=== PATIENT | male | born 1975 | race Caucasian/White ===

== ENCOUNTER 2019-09-24 11:00 | Outpatient (RCR) | payer BC, SELFPAY ==
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
--- NOTE | 2019-08-05 09:01 | PCPTNOTE ---
Late Note for 07/28/19: Patient called & cancelled scheduled appointment this date due to being out of town.
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
--- NOTE | 2019-08-27 11:46 | OTOPEVAL ---
OCCUPATIONAL THERAPY RE-EVALUATION REPORT 08/27/2019 Thank you for referring Adiel Royal to [facility]. Continued skilled OT indicated 2x/week for 5 weeks. Please review, sign, date and return this plan of care ZAIDA. I agree with and certify that the following plan of care is medically necessary. Referring Physician Date Referring Provider: RUTHIE ROTHMAN NP *OT Outpatient Re-Evaluation Evaluation Information Problem Diagnosis (R) distal radius fracture s/p bridge plate removal Additional Evaluation Detail fracture 03/11/19 initial sx 03/24/19 plate removal 07/13/19 Subjective Information Patient reports improved Query Text:As Reported By Patient/ functional use of the RUE Family since beginning OT. He states he is using his hand more, noting being able to use the right hand to feed himself and open a can. He is still limited strength-hammonds, as he is unable to twist open a bottle, but he does note improvement with being able to carry a full aluminum cup. Pain Assessment Timing of Pain Assessment Timing of Pain Assessment Re-assessment Pain Scale Pain Scale Used Numeric (1 - 10) Self Report Pain Assessment Right Wrist(s) Reported Pain Level 0 Lowest Pain Intensity 0 Greatest Pain Intensity 5 Pain Aggravating Factors Exercise/Activity Pain Score Pain Score 0: Self Report Upper Extremity Range of Motion Scapular/ Shoulder Range of Motion Right Reason Not Measured WNL/Right Elbow/Forearm Range of Motion Right Elbow Flexion - Active 120 Elbow Flexion - Passive 130 Elbow Extension - Active -10 Elbow Extension - Passive -10 Forearm Supination - Active 65 Forearm Pronation - Active 85 Elbow/Forearm Range of Motion Comments flexion improved from 110* extension improved from -20* supination improved from 20* pronation remained WNL at 85* Wrist Range of Motion Right Wrist Flexion - Active 35 Wrist Flexion - Passive 45 Wrist Extension - Active 45 Wrist Extension - Passive 60 Wrist Radial Deviation - Active 25 Wrist Radial Deviation - Passive 30 Wrist Ulnar Deviation - Active 25 Wrist Ulnar Deviation - Passive 35 Wrist Range of Motion Comments flexion improved from 20* extension improved from 35* RD improve
--- NOTE | 2019-10-15 11:21 | PCOTNOTE ---
This treatment is being continued on visit number [id number]. Please see documentation on both accounts to view progress. Completed interventions, outcomes, and problems have been marked as Inactive to facilitate the copying of the Care plan routine for recurring accounts.
--- NOTE | 2019-10-16 13:52 | PCPTNOTE ---
This treatment is being continued on visit number [id number]. Please see documentation on both accounts to view progress. Completed interventions, outcomes, and problems have been marked as Inactive to facilitate the copying of the Care plan routine for recurring accounts.
== END 2019-10-13 23:59 | disposition home or self-care (01) ==
LOC: ANHPT 11:00
PROVIDERS: PCP Family Medicine; Visit Provider Family Medicine
DX: M54.5 Low back pain (principal); G89.29 Other chronic pain; S42.401D Unspecified fracture of lower end of right humerus, subsequent encounter for fracture with routine healing; S52.501D Unspecified fracture of the lower end of right radius, subsequent encounter for closed fracture with routine healing; S32.811D Multiple fractures of pelvis with unstable disruption of pelvic ring, subsequent encounter for fracture with routine healing
CPT/HCPCS: 97018; 97110; 97116; 97140; 97162; 97165

== ENCOUNTER 2020-01-07 08:00 | Outpatient (RCR) | payer BC, MEDICAID, SELFPAY ==
--- NOTE | 2019-10-15 11:22 | PCOTNOTE ---
The treatment documented on this account is a continuation of the treatment documented on visit number [id number]. Please see documentation on both accounts to view progress. The Plan of Care has been transitioned and updated within the new V#. I have addressed and agree with the discipline specific Problems, Interventions, and Goals for the current certification period. Completed interventions, outcomes, and problems have been marked as Inactive to facilitate the copying of the Care plan routine for recurring accounts.
--- NOTE | 2019-10-16 14:02 | PCPTNOTE ---
This treatment is being continued from previous visit number [id number]. Please see documentation on both accounts to view progress. Completed interventions, outcomes, and problems have been marked as Inactive to facilitate the copying of the Care plan routine for recurring accounts.
--- NOTE | 2019-10-23 14:09 | OTOPEVAL ---
OCCUPATIONAL THERAPY DISCHARGE SUMMARY 10/23/2019: Thank you for referring Adiel Royal to [facility] The patient has been seen for skilled OT since 08/05/2019 and has attended 16 treatment sessions. Pt canceled re-evaluation for Occupational Therapy per MD recommendation that OT is no longer indicated. Patient is independent in all Range of Motion and strengthening home exercise programs and will be discharged from skilled OT at this time. Please review, sign, date and return this plan of care ZAIDA. I agree with and certify that the following plan of care is medically necessary. Referring Physician Date Attending Provider: Jeffrey Guaman MD
--- NOTE | 2019-11-03 11:15 | PTOPEVAL ---
PHYSICAL THERAPY RE-EVALUATION AND UPDATED PLAN OF CARE 11-03-2019 Dale has received 20 PT sessions, from July 14 to September 24, 2019. He then called and canceled the scheduled reevaluation on September 28. He reports he was out of town in [place] for 5 weeks. And re-scheduled the reevaluation for today. Dale stated the hand/wrist dr has released him and OT is to stop treatment. He does not have a follow up appointment with his hip surgeon, Dr. Sherman. Compared to the last reevaluation on 08-27-19: pain rating has increased; B UE lifting to the floor has increased from 17 to 20#; strength with supine R and L hip flexion and abduction motions has improved; sit/stand time has improved from 28 to 19 seconds; 6 minute walking tolerance has increased from 550' with one crutch to 935' without an assistive device. He continues to report decreased sitting, lifting, standing and walking tolerances due to pain in his hips and low back. With walking, he has a limp on his R LE. Thank you for referring Adiel Royal to [facility].? He is scheduled to be seen for therapy? 2 x/week for 4 weeks. Please review, sign, date and return this plan of care ZAIDA. I agree with and certify that the following plan of care is medically necessary. Referring Physician Date Attending Provider: Jeffrey Guaman MD *PT Outpatient Re-Evaluation Start: 11/03/19 09:07 Document 11/03/19 09:00 FARZANA (Rec: 11/03/19 09:52 FAZRANA [id number]) Pain Assessment Timing of Pain Assessment Timing of Pain Assessment Assessment Pain Scale Pain Scale Used Numeric (1 - 10) Self Report Pain Assessment Bilateral Hip(s) Reported Pain Level 5 Pain Description Sharp,Stabbing,Tightness Radicular Pain Location R and L low back, post hip; R hip stab with stepping wrong- take breath away Pain Frequency Chronic,Continuous Lowest Pain Intensity 1 Greatest Pain Intensity 7 Other Pain Aggravating Factors sit to stand;reported tolerance stand 20 min,up/ active ~ 1 hr;roll over bed Pain Relief Interventions Used By Heat,Inactivity/Rest, Patient Medication Other Alleviating Interventions take tramadol for sleeping; not regularly taking any pain meds Pain Score Pain Score 5: Self Report Additional Pain Score Comments troubles putting socks on-- L have to lift leg to cross leg to R to put on; with R- cannot cross leg- have to lean down in sitting position; also reports pain in R wrist with pushing on R arm ; reports hand/wrist dr released him; stated he could go back to work; still have
--- NOTE | 2019-11-19 08:53 | PCPTNOTE ---
pt called and canceled today's treatment session;
--- NOTE | 2019-11-24 08:46 | PCPTNOTE ---
Patient called & cancelled scheduled appointment this date due to sickness, not feeling well.
--- NOTE | 2019-12-01 09:55 | PTOPEVAL ---
PHYSICAL THERAPY RE-EVALUATION AND UPDATED PLAN OF CARE 12-01-2019 Refer to the clinical summary below for the comparison since last reevaluation. Continue PT treatment for 2x/week for 6 weeks. Thank you for referring Dale to [facility].? Please review, sign, date and return this plan of care ZAIDA. I agree with and certify that the following plan of care is medically necessary. Referring Physician Date Attending Provider: Jeffrey Guaman MD *PT Outpatient Re-Evaluation Document 12/01/19 09:00 FARZANA (Rec: 12/01/19 09:55 FARZANA [id number]) Subjective Information Dale reports: at home, can be Query Text:As Reported By Patient/ active about 45 min then have Family to sit and rest due to pain; to have kidney scope next week - problems with urine and bladder; more pain with 12 hour car ride--getting in/out car; easier with sit to stand and in/out bed; troubles getting R shoe on-- has to assist with R shoe- pulls on hip with sitting and reaching down to shoe; is going to have pain injections in back, but not until January-- due to that being the first appt available; Feels he is getting better and pushing himself to do more, but has more pain. He wants to continue PT treatments. Pain Assessment Timing of Pain Assessment Timing of Pain Assessment Assessment Pain Scale Pain Scale Used Numeric (1 - 10) Self Report Pain Assessment Right Lower Back Reported Pain Level 5 Pain Description Aching,Dull,Tightness Radicular Pain Location R and L hips Pain Frequency Chronic Lowest Pain Intensity 1 Greatest Pain Intensity 10 Other Pain Aggravating Factors sit to stand; too large of step, twisting back, sit on hard chair Pain Relief Interventions Used By Inactivity/Rest Patient Bilateral Hip(s) Reported Pain Level 5 Pain Score Pain Score 5,5: Self Report Lower Extremity Muscle Strength Testing General Lower Extremity Strength Gross Lower Extremity Strength - B UE Lift floor/waist- wt increased to max lift tolerated 40#- stop due to pulling in back
--- NOTE | 2019-12-17 09:24 | PCPTNOTE ---
pt did not show for today's treatment session; called and left him a voice mail with reminder of his next appt, next week;
--- NOTE | 2020-01-07 10:10 | PTOPEVAL ---
PHYSICAL THERAPY DISCHARGE 01-07-2020 Refer to clinical summary below for his status, compared to last reevaluation. And his discharge status. He is scheduled to have pain injections next week for his back and next appointment with his surgeon is March. Dale stated that he wants to go back to work in March and may be able to bid on a job with less lifting when he returns. Thank you for referring Adiel Royal to [facility] I agree with and certify that the discharge is medically necessary. Referring Physician Date Attending Provider: Jeffrey Guaman MD *PT Outpatient Discharge Document 01/07/20 08:05 FARZANA (Rec: 01/07/20 08:58 FARZANA [id number]) Subjective Information Dale reports: pain is about Query Text:As Reported By Patient/ the same; pain is constant; Family get injections into back next week; see pelvic dr who did surgery in March; walking/ activity tolerance with home tasks 45 minutes; can get R shoe on/off and tied, but painful; reports his job requires 50# lifting and walking 4 hr and sitting 4 hours, but he may be able to bid on a less physical job when he returns to work; Discussed discharge from PT-- he will need to continue HEP, walking and activity tolerance increase as tolerated, with use of heat and electrical stim, rest to manage his pain. Pain Assessment Timing of Pain Assessment Timing of Pain Assessment Assessment Pain Scale Pain Scale Used Numeric (1 - 10) Self Report Pain Assessment Right Lower Back Reported Pain Level 4 Pain Description Aching,Dull Radicular Pain Location R > L lower lumbar, sacral and lateral hips; Pain Frequency Chronic,Continuous Lowest Pain Intensity 4 Greatest Pain Intensity 5 Pain Aggravating Factors Exercise/Activity,Walking, Weight Bearing/Standing Pain Behaviors Guarding Bilateral Hip(s) Reported Pain Level 4 Pain Score Pain Score 4,4: Self Report Interventions Used Interventions Used By Clinicians Exercise Lower Extremity Range of Motion General Lower Extremity Range of Motion Gross Lower Extremity Range of Motion supine hip ER increase pain R Comments > L with ROM equal R/L; prone knee flex
== END 2020-01-07 11:14 | disposition home or self-care (01) ==
LOC: ANHPT 08:00
PROVIDERS: PCP Family Medicine; Visit Provider Family Medicine
DX: M54.5 Low back pain (principal); G89.29 Other chronic pain; S42.401D Unspecified fracture of lower end of right humerus, subsequent encounter for fracture with routine healing; S52.501D Unspecified fracture of the lower end of right radius, subsequent encounter for closed fracture with routine healing; S32.811D Multiple fractures of pelvis with unstable disruption of pelvic ring, subsequent encounter for fracture with routine healing
CPT/HCPCS: 97014; 97018; 97110; 97140; G0283

== ENCOUNTER 2022-11-22 19:18 | Emergency (ER) | payer BC, SELFPAY ==
--- NOTE | ~2022-11-22 | CT_ITS ---
CT of the Abdomen and Pelvis: Indication: Abdominal pain Technique: 2.5 mm axial scans were obtained through the abdomen and pelvis following intravenous adm inistration of 100 cc of Omnipaque 350. Dose reduction technique was used on this scan by utilizing a utomated exposure control and iterative reconstruction technique. The dose-length product (DLP) was 1 755.01 mGy-cm. COMPARISON: 10/12/2007 Findings: Scans through the lung bases are unremarkable. The liver, spleen, pancreas, gallbladder, adrenals and kidneys are within normal limits. No evidence of aortic aneurysm. No lymphadenopathy. No bowel obstruction or bowel wall thickening. There is no evidence to suggest acute appendicitis. Images through the pelvis were performed. Urinary bladder unremarkable. Prostate gland and seminal ve sicles are unremarkable. No ascites. Orthopedic fixation across the pubic symphysis and SI joints not ed. Impression: No significant abnormalities seen. Reviewed, dictated and finalized at [facility]. Impression: No significant abnormalities seen.
[2022-11-22 20:36] VITALS: BP 149/86; PULSE 75; RESP 18; TEMP 36.6; O2SAT 100
[2022-11-22 23:09] VITALS: BP 157/116; PULSE 68; RESP 18; O2SAT 100
--- NOTE | 2022-11-23 00:37 | ED.ABDPAIN ---
HPI - Abdominal Pain General Chief Complaint: Abdominal Pain <BROOKS Salazar Last Filed: 11/23/22 04:27> Stated Complaint: abd pain <BROOKS Salazar Last Filed: 11/23/22 04:27> Time Seen by Provider: 11/23/22 00:04 <BROOKS Salazar Last Filed: 11/23/22 04:27> Source: patient <BROOKS Salazar Last Filed: 11/23/22 04:27> Mode of arrival: ambulatory <BROOKS Salazar Last Filed: 11/23/22 04:27> Limitations: no limitations <BROOKS Salazar Last Filed: 11/23/22 04:27> History of Present Illness HPI narrative: Patient is a 47-year-old female who presents to the ED with report of upper abdominal pain. Patient reports he was started on Ozempic 3 weeks ago and has had 3 doses thus far. After receiving his most recent dose on Saturday, patient reports having increased belching, nausea, pain throughout his upper abdomen extending into his periumbilical region. Pain worse with eating. He has not tried anything for pain. He was referred here for further evaluation. Patient feels like he may be constipated, though reports having 3 small bowel movements yesterday. Denies any vomiting. Denies any fever. Denies chest pain or shortness of breath. Denies urinary symptoms. Patient notes history of diverticulitis, but states pain does not feel similar. <BROOKS Salazar Last Filed: 11/23/22 04:27> Related Data Home Medications: Home Medications Medication Instructions Recorded Confirmed cyanocobalamin (vitamin B-12) 1,000 mcg PO DAILY 08/08/21 11/05/22 1,000 mcg tablet <BROOKS Salazar Last Filed: 11/23/22 04:27> Allergies/Adverse Reactions: Allergies Allergy/AdvReac Type Severity Reaction Status Date / Time No Known Allergies Allergy Unknown Verified 09/14/22 09:12 <BROOKS Salazar Last Filed: 11/23/22 04:27> Review of Systems Review of Systems: CONSTITUTIONAL: Denies fever, chills, or sweats. CARDIOVASCULAR: Denies chest pain. RESPIRATORY: Denies dyspnea. GASTROINTESTINAL: See HPI. GENITOURINARY: Denies dysuria or hematuria. SKIN: Denies rash or itching. MUSCULOSKELETAL: Denies back pain, joint pain, or myalgia. NEUROLOGIC: Denies headache, numbness, or weakness. <Shelbie Horowitz PA-C - Last Filed: 11/23/22 04:27> All systems reviewed & are unremarkable except as noted in HPI and below <Shelbie Horowitz PA-C - Last Filed: 11/23/22 04:27> [facility] Past Medical History Medical History: Medical History Acute bronchitis Acute diverticulitis Acute non-recurrent maxillary sinusitis BPH without obstruction/lower urinary tract symptoms Chewing tobacco nicotine dependence Quit chewing tobacco. Uses nicotine products. Chronic anxiety Chronic bilateral low back pain Chronic depression Closed fracture of distal end of right radius with routine healing Closed fracture of right elbow with routine healing Colon polyp, hyperplastic Conjunctivitis Controlled diabetes mellitus type II without complication Fasting glucose 101 with hemoglobin A1c 6.0 on 12/26/2020. glucose 110 with hemoglobin A1c 6.3 on 07/26/2021. COVID-19 (03/17/20) COVID-19 (03/24/21) test positive 03/25/2021 2nd episode Encounter for prostate cancer screening PSA 0.19 on 07/22/2021. Encounter for screening laboratory testing for COVID-19 virus Exposure to COVID-19 virus GERD (gastroesophageal reflux disease) H/O urinary frequency Hypogonadism male Testosterone low at 147 with free testosterone low at 17 on 07/26/2021. Increased intraocular pressure (~06/2021) bilateral 31/32 Insomnia Iron deficiency anemia, unspecified Iron 148 with 41% saturation and ferritin low at 22 with hemoglobin 13.6 on 07/26/2021. Left elbow pain Leg pain Male erectile dysfunction, unspecified Mixed hyperlipidemia Cholesterol 130, trig
[2022-11-23 01:00] VITALS: BP 155/92; PULSE 72; RESP 16; O2SAT 100
[2022-11-23] MEDS: MORPHINE SULFATE (*CRX) 4 MG/ML INJ IV PUSH (01:25)
[2022-11-23] MEDS: ONDANSETRON INJ 4 MG/2 ML VIAL IV PUSH (01:26)
[2022-11-23] MEDS: SODIUM CHLORIDE 0.9% IV 1,000 ML 999 ML IV CONT (01:28)
[2022-11-23] MEDS: BELLADONNA ALK/PHENOB ELIX 10 ML, MAG HYDROX/ALUMINUM HYD/SIMETH 30 ML, LIDOCAINE HCL 2... PO (01:29)
[2022-11-23 03:00] VITALS: BP 148/84; PULSE 71; RESP 16; O2SAT 100
[2022-11-23 03:05] LABS: Alanine Aminotransferase 47 U/L (6-50); Albumin Level 4.4 g/dL (3.5-5.1); Alkaline Phosphatase 70 U/L (38-126); Anion Gap 5 mmol/L (8-16); Aspartate Amino Transferase 41 U/L (17-59); Bilirubin,Total 0.6 mg/dL (0.2-1.3); Blood Urea Nitrogen 12 mg/dL (9-20); Carbon Dioxide 33 mmol/L (22-30); Chloride 97 mmol/L (98-107); Estimated CRCL calculation 113 ml/min; Estimated Glomerular Filt Rate > 60; Glucose 85 mg/dL (65-110); Lipase 132 U/L (23-300); Potassium 3.9 mmol/L (3.4-5.0); Sodium 135 mmol/L (137-145)
[2022-11-23 03:09] LABS: Appearance Urine Clear (Clear); Bacteria Urine None Seen /hpf; Basophils Percent Auto 0.7 % (0.2-1.2); Bilirubin Urine Negative (Negative); Blood Urine Negative (Negative); Color Urine Yellow (Yellow); Eosinophils Absolute Auto 0.1 K/mm3 (0-0.3); Eosinophils Percent Auto 2.3 % (0-4.4); Glucose Urine UA Negative (Negative); Hematocrit 44.1 % (42.0-52.0); Hemoglobin 14.6 g/dL (14.0-18.0); Immature Granulocyte Absolute 0.03 K/mm3 (0.00-0.031); Immature Granulocyte Percent A 0.5 % (0-0.5); Ketones Urine Negative (Negative); Leukocyte Esterase Ur Negative LEU/UL (Negative); Lymphocytes Absolute Auto 1.98 K/mm3 (0.9-3.2); Lymphocytes Percent Auto 32.2 % (18.3-44.2); Mean Corpuscular HGB Conc 33.1 g/dl (32-36); Mean Corpuscular Hemoglobin 31.2 pg (26-34); Mean Corpuscular Volume 94.2 fl (80-100); Mean Platelet Volume 8.7 fl (7.4-10.4); Monocytes Percent Auto 15.4 % (2.6-8.5); Neutrophils Percent Auto 48.9 % (45.5-73.1); Nitrate Urine Negative (Negative); Non Pathogenic Casts 0-2; Platelet Count Result 218 k/mm3 (150-375); Protein Urine 1+ mg/dL (Negative); RBC Urine 0-2 /hpf (0-2); Red Blood Count 4.68 M/mm3 (4.6-6.20); Red Cell Distribution Width 13.4 % (11.5-14.5); Specific Grav Ur 1.022 (1.001-1.035); Squamous Epithelial Cell Urine None seen /hpf (Few); Urobilinogen Urine 0.2 mg/dL (<2.0); WBC Urine 0-5 /hpf; White Blood Count 6.2 K/mm3 (4.5-10.0); pH Urine 5.5 (5.0-9.0)
[2022-11-23 03:45] LABS: Add Urine Microscopic? YES
[2022-11-23 03:47] LABS: Estimated CRCL calculation 96 ml/min; Estimated Glomerular Filt Rate 59
[2022-11-23 05:00] VITALS: BP 150/86; PULSE 75; RESP 16; O2SAT 100
[2022-11-23] MEDS: DICYCLOMINE HCL INJ 20 MG/2 ML VIAL IM (05:44)
== END 2022-11-23 06:00 | disposition home or self-care (01) ==
PROVIDERS: Physician Assistant; Emergency Provider Emergency Medicine; PCP Family Medicine
DX: R10.10 Upper abdominal pain, unspecified (principal); E11.9 Type 2 diabetes mellitus without complications; D50.9 Iron deficiency anemia, unspecified; D51.9 Vitamin B12 deficiency anemia, unspecified; E66.01 Morbid (severe) obesity due to excess calories; Z68.42 Body mass index [BMI] 45.0-49.9, adult; N40.0 Benign prostatic hyperplasia without lower urinary tract symptoms; K21.9 Gastro-esophageal reflux disease without esophagitis; G47.33 Obstructive sleep apnea (adult) (pediatric); F41.9 Anxiety disorder, unspecified; F32.A Depression, unspecified; Z86.16 Personal history of COVID-19; Z87.19 Personal history of other diseases of the digestive system; Z87.440 Personal history of urinary (tract) infections; Z87.891 Personal history of nicotine dependence; Z79.85 Long-term (current) use of injectable non-insulin antidiabetic drugs
CPT/HCPCS: 36415; 74177; 80053; 81001; 83690; 85025; 96361; 96372; 96374; 96375; 99284; A9270; J0500; J2270; J2405; J7030; Q9967